=== PATIENT | female | born 1995 | race Caucasian/White ===

== ENCOUNTER 2020-08-28 15:24 | Outpatient (CLI) | payer BC ==
[~2020-08-28 15:24] MED LIST: Magnevist 469MG/ML 20 ML VIAL ONE
== END 2020-08-28 15:25 | disposition home or self-care (01) ==
LOC: BICMRI 15:24
PROVIDERS: ATTEND Advanced Practice Midwife
DX: Q51.3 Bicornate uterus (principal)
CPT/HCPCS: 72197